=== PATIENT | male | born 1955 | race Caucasian/White ===

== ENCOUNTER → 2024-10-21 | Outpatient (CLI) | payer OTHER, SELFPAY ==
[2024-10-29 06:24] LABS: Albumin 4.1 g/dL (3.6-5.1); SHBG 33 nmol/L (22-77); Testosterone, Bioavailable 67.8 ng/dL (110.0-575.0); Testosterone,Total 279 ng/dL (250-1100)
== END | disposition home or self-care (01) ==
LOC: COPL 14:58
PROVIDERS: PCP Family Medicine; Referring Provider Nurse Practitioner Family; Visit Provider Nurse Practitioner Family
DX: E29.1 Testicular hypofunction (principal)
CPT/HCPCS: 36415; 82040; 84270; 84403

== ENCOUNTER → 2025-01-22 | Outpatient (CLI) | payer OTHER, SELFPAY ==
[2025-01-22 09:32] LABS: Basophils # (Auto) 0.1 Thou/mm3 (0.0-0.2); Basophils % (Auto) 1 % (0-2.5); Eosinophils # (Auto) 0.4 Thou/mm3 (0.0-0.5); Eosinophils % (Auto) 5 % (0-10); Hematocrit 41.8 % (41.0-53.0); Hemoglobin 12.9 g/dL (13.5-16.0); Immature Granulocytes % (Auto) 0 % (0-0); Immature Granulocytes Auto 0.02 Thou/mm3 (0.00-0.00); Lymphocytes # (Auto) 2.2 Thou/mm3 (1.0-4.8); Lymphocytes % (Auto) 30 % (10-50); Mean Corpuscular HGB Conc 30.9 g/dl (31.0-37.0); Mean Corpuscular Hemoglobin 23.3 pg (25.0-35.0); Mean Corpuscular Volume 76 fL (80-100); Monocytes # (Auto) 0.8 Thou/mm3 (0.0-0.8); Monocytes % (Auto) 10 % (0-12); Neutrophils % (Auto) 54 % (37-80); Nucleated Red Blood Cell % 0 /100 WBC (0); Platelet Count 338 Thou/mm3 (140-440); RDW Standard Deviation 46.5 fL (35.1-43.9); Red Blood Count 5.53 Miln/mm3 (4.50-5.90); White Blood Count 7.4 Thou/mm3 (3.8-10.6)
[2025-01-22 09:45] LABS: Glucose Estimated Average 137 mg/dL (80-131); Hemoglobin A1C 6.4 % Hgb (4.8-6.0)
[2025-01-22 10:02] LABS: Prostate Specific Antigen 1.15 ng/mL (0-4.00); T4 (Thyroxine) 6.8 mcg/dL (4.5-10.9)
[2025-01-22 10:04] LABS: Alanine Aminotransferase 20 U/L (10-49); Albumin, Serum 4.1 gm/dL (3.4-4.8); Albumin/Globulin Ratio 1.8 (1.2-2.2); Alkaline Phosphatase 97 U/L (46-116); Anion Gap 8 (7-16); Aspartate Amino Transferase 17 U/L (0-34); BUN/Creatinine Ratio 12 Ratio (12-20); Bilirubin,Total 0.4 mg/dL (0.3-1.2); Blood Urea Nitrogen 12 mg/dL (9-23); Calcium 9.3 mg/dL (8.3-10.6); Calcium (Corrected) 9.3 mg/dL (8.5-10.1); Carbon Dioxide 26.8 mMol/L (20.0-31.0); Cardiac Risk Estimate 3.6 RATIO (4.0-6.7); Chloride 108 mMol/L (98-107); Cholesterol 139 mg/dL (132-200); Globulin 2.3 gm/dL (2.3-3.5); Glucose 129 mg/dL (74-106); HDL Cholesterol 39 mg/dL (40-60); LDL Cholesterol,Calculated 66 mg/dL (0-130); Osmolality,Calculated 286 (275-295); Potassium 4.6 mMol/L (3.4-5.1); Sodium 143 mMol/L (136-145); Total Protein 6.4 gm/dL (5.7-8.2); Triglycerides 171 mg/dL (30-150); eGFR > 60 See Note
[2025-01-27 06:57] LABS: Testosterone, Free,Dialysis 202.7 pg/mL (35.0-155.0); Testosterone, Total, Dialysis 899 ng/dL (250-1100)
== END | disposition home or self-care (01) ==
LOC: COPL 08:22
PROVIDERS: PCP Family Medicine; Referring Provider Nurse Practitioner Family; Visit Provider Nurse Practitioner Family
DX: Z12.5 Encounter for screening for malignant neoplasm of prostate (principal); E29.1 Testicular hypofunction; I10 Essential (primary) hypertension; E11.9 Type 2 diabetes mellitus without complications
CPT/HCPCS: 36415; 80053; 80061; 83036; 84153; 84402; 84403; 84436; 84443; 85025

== ENCOUNTER → 2025-04-04 | Outpatient (CLI) | payer OTHER, SELFPAY ==
[2025-04-04 10:43] LABS: B-Type Natriuretic Peptide 121 pg/mL (0-100)
[2025-04-04 11:30] LABS: D-Dimer < 250 ng/mL (<600)
== END | disposition home or self-care (01) ==
LOC: COPL 09:08
PROVIDERS: PCP Family Medicine; Referring Provider Nurse Practitioner Family; Visit Provider Nurse Practitioner Family
DX: R06.02 Shortness of breath (principal); R07.9 Chest pain, unspecified
CPT/HCPCS: 36415; 83880; 85379

== ENCOUNTER → 2025-04-30 | Outpatient (CLI) | payer OTHER, SELFPAY ==
[2025-04-30 11:28] LABS: B-Type Natriuretic Peptide 203 pg/mL (0-100)
== END | disposition home or self-care (01) ==
LOC: COPL 10:43
PROVIDERS: PCP Family Medicine; Referring Provider Nurse Practitioner Family; Visit Provider Nurse Practitioner Family
DX: R06.02 Shortness of breath (principal); I50.20 Unspecified systolic (congestive) heart failure
CPT/HCPCS: 36415; 83880

== ENCOUNTER 2025-05-26 06:37 | Day surgery (SDC) | payer OTHER, SELFPAY ==
[2025-05-22 17:38] VITALS: BMI 30.6
[2025-05-26] VITALS (11 sets, daily range): BP systolic 110–155; BP diastolic 53–81; PULSE 64–74; RESP 12–20; TEMP 36.2–36.6; O2SAT 92–98
--- NOTE | 2025-05-26 07:00 | EKG_ITS ---
[facility] (Formerly [facility]) Test Date: 2025-05-26 Pat Name: ZAC SHAW Department: Room: - Gender: Male [employer]: : 1955 Requested By: Felicia Tobias Order Number: [id number] Reading MD: Felicia Tobias Measurements Intervals Lopez Rate: 69 P: 66 ID: [id number] QRS: 20 QRSD: 80 T: 30 QT: 376 QTc: 403 Interpretive Statements SINUS RHYTHM MINIMAL VOLTAGE CRITERIA FOR LVH, CONSIDER NORMAL VARIANT Compared to ECG 11/18/2018 16:32:16 No significant changes /[id number]
[2025-05-26 07:27] LABS: Basophils # (Auto) 0.1 Thou/mm3 (0.0-0.2); Basophils % (Auto) 1 % (0-2.5); Eosinophils # (Auto) 0.3 Thou/mm3 (0.0-0.5); Eosinophils % (Auto) 4 % (0-10); Hematocrit 29.2 % (41.0-53.0); Immature Granulocytes Auto 0.01 Thou/mm3 (0.00-0.00); Lymphocytes # (Auto) 2.4 Thou/mm3 (1.0-4.8); Lymphocytes % (Auto) 33 % (10-50); Mean Corpuscular HGB Conc 25.0 g/dl (31.0-37.0); Mean Corpuscular Hemoglobin 16.5 pg (25.0-35.0); Mean Corpuscular Volume 66 fL (80-100); Monocytes # (Auto) 0.6 Thou/mm3 (0.0-0.8); Monocytes % (Auto) 8 % (0-12); Neutrophils # (Auto) 3.9 Thou/mm3 (1.8-7.7); Neutrophils % (Auto) 54 % (37-80); Nucleated Red Blood Cell # 0.00 Thou/mm3 (0.00-0.00); Nucleated Red Blood Cell % 0 /100 WBC (0); Platelet Count 386 Thou/mm3 (140-440); RDW Standard Deviation 46.2 fL (35.1-43.9); Red Blood Count 4.43 Miln/mm3 (4.50-5.90); White Blood Count 7.2 Thou/mm3 (3.8-10.6)
[2025-05-26 07:41] LABS: Anion Gap 8 (7-16); BUN/Creatinine Ratio 14 Ratio (12-20); Blood Urea Nitrogen 15 mg/dL (9-23); Calcium 8.9 mg/dL (8.3-10.6); Carbon Dioxide 28.3 mMol/L (20.0-31.0); Chloride 108 mMol/L (98-107); Creatinine (Component) 1.1 mg/dL (0.6-1.3); Estimated Creatinine Clearance 86.5 mL/min (>60); Glucose 126 mg/dL (74-106); Osmolality,Calculated 289 (275-295); Potassium 4.4 mMol/L (3.4-5.1); Sodium 144 mMol/L (136-145); eGFR > 60 See Note
[2025-05-26 07:43] LABS: Hemoglobin 7.3 g/dL (13.5-16.0)
[2025-05-26 07:56] LABS: INR 1.0 (0.9-1.3); Partial Thromboplastin Time 22.7 Seconds (22.0-36.0); Prothrombin Time 10.9 Seconds (9.0-12.2)
--- NOTE | 2025-05-26 13:33 | ESOP_ITS ---
RE: ZAC SHAW : 1955 DATE OF OPERATION: 05/26/2025 PROCEDURES PERFORMED: 1. Diagnostic left heart cardiac catheterization, selective coronary angiogram, left ventricular angiogram, CPT 00672. 2. Ultrasound-guided right radial artery access. 3. Conscious sedation for 30 minutes. DIAGNOSIS: Angina affect with abnormal stress test. HISTORY AND INDICATIONS: The patient is a 70-year-old male with a history of hypertension and risk factor was created as recurrent shortness of breath, chest tightness, and exertion. Cardiac stress and nuclear scan is abnormal, hence coronary angiogram, cardiac catheterization is recommended. The patient is a candidate for intervention. DESCRIPTION OF PROCEDURE: The patient was brought to the cardiac catheterization laboratory where he was given 2 mg Versed and 50 mcg of fentanyl for sedation. He was given 2 mg of Versed and 50 mcg fentanyl with sedation. Right radial approach was taken. Right radial artery was cannulated by micro-puncture technique and a 6-[place] was introduced. Selective right and left coronary angiogram performed by TIG4 5-[place] diagnostic catheter. Right and left coronary angiogram performed. Left heart catheterization and LV angiogram performed by 5-[place] TIG4 diagnostic catheter. The patient tolerated the procedure well. No complications. Coronary angiogram showed following findings: Right coronary artery is large and dominant. Giving a PDA posterior advice appear normal. Left coronary system. Left main coronary is normal. Left anterior descending artery appears normal. Circumflex artery nondominant appears normal. No significant obstructive coronary artery disease. Left ventricular angiogram showed normal left ventricular wall motion with ejection fraction of 70%. Left ventricular pressure is 110/88, EDP 12. Aortic patent 110/80. No gradient across the aortic valve. Left ventricular angiogram showed normal left ventricular wall motion with ejection fraction is 65%. SUMMARY OF FINDINGS: 1. Normal left ventricular function. 2. Normal hemodynamics. 3. Normal nonobstructive epicardial coronary artery disease. RECOMMENDATIONS: The patient is reassured about the absence of significant obstructive coronary artery disease. Progress is excellent. Recommended continued medical management. Investigate for other causes of shortness of breath and noncardiac chest pain. DT: 12:42:10 TT: 13:30:00 Ref: [id number] - TID: [id number]
== END 2025-05-26 11:55 | disposition home or self-care (01) ==
PROVIDERS: PCP Family Medicine; Referring Provider Internal Medicine Cardiovascular Disease; Visit Provider Internal Medicine Cardiovascular Disease
PROC: (CPT 93458; principal; 2025-05-26 07:30)
DX: I25.119 Atherosclerotic heart disease of native coronary artery with unspecified angina pectoris (principal); I10 Essential (primary) hypertension; Z01.810 Encounter for preprocedural cardiovascular examination
CPT/HCPCS: 93458; 36415; 80048; 85025; 85610; 85730; 93005; 99152; A4649; C1769; C1887; C1894; J0171; J0461; J1643; J2250; J2310; J2371; J3010; J3490; Q9967; J2305

== ENCOUNTER → 2025-05-27 | Outpatient (CLI) | payer OTHER, SELFPAY ==
[2025-05-27 16:22] LABS: Misc Send Out* See Sep Rpt
[2025-05-27 17:34] LABS: Immature Reticulocyte Fraction 17.6 % (2.3-13.4); Reticulocyte % (Auto) 1.6 % (0.5-1.5); Reticulocyte Absolute Auto 68.6 Biln/L (25.0-75.0); Reticulocyte Hgb Content 14.9 pg (28.0-35.0)
[2025-05-27 17:46] LABS: Alanine Aminotransferase 20 U/L (10-49); Albumin, Serum 4.1 gm/dL (3.4-4.8); Alkaline Phosphatase 113 U/L (46-116); Aspartate Amino Transferase 16 U/L (0-34); Bilirubin,Direct 0.1 mg/dL (0.0-0.3); Bilirubin,Total 0.3 mg/dL (0.3-1.2); Total Protein 6.3 gm/dL (5.7-8.2)
[2025-05-27 17:48] LABS: Ferritin 2 ng/mL (10.5-307.3); Iron 6 mcg/dL (65-175); Percent Iron Saturation 1 % (20-55); Total Iron Binding Capacity 421 mcg/dL (250-425); Unsaturated Iron Binding 415 (225-295)
[2025-05-27 17:56] LABS: Folate 8.96 ng/mL (>5.38); Vitamin B12 > 2000 pg/mL (211-911)
[2025-06-02 09:33] LABS: Fecal Globin Result NOT DETECTED (NOT DETECTED)
[2025-06-02 09:38] LABS: Homocysteine* 10.8 umol/L (< OR = 15.2); Methylmalonic Acid, GC/MS/MS* 165 nmol/L (69-390)
== END | disposition home or self-care (01) ==
LOC: COPL 16:06
PROVIDERS: PCP Nurse Practitioner Family; Referring Provider Nurse Practitioner Family; Visit Provider Nurse Practitioner Family
DX: D64.9 Anemia, unspecified (principal); R42 Dizziness and giddiness
CPT/HCPCS: 36415; 80076; 82274; 82607; 82728; 82746; 83090; 83540; 83550; 83921; 84466; 85046; G0328

== ENCOUNTER → 2025-06-02 | Outpatient (CLI) | payer OTHER, SELFPAY ==
[2025-06-02 11:18] LABS: Basophils # (Auto) 0.1 Thou/mm3 (0.0-0.2); Basophils % (Auto) 1 % (0-2.5); Eosinophils # (Auto) 0.2 Thou/mm3 (0.0-0.5); Eosinophils % (Auto) 3 % (0-10); Hematocrit 27.3 % (41.0-53.0); Immature Granulocytes Auto 0.04 Thou/mm3 (0.00-0.00); Immature Reticulocyte Fraction 42.9 % (2.3-13.4); Lymphocytes # (Auto) 1.4 Thou/mm3 (1.0-4.8); Lymphocytes % (Auto) 21 % (10-50); Mean Corpuscular HGB Conc 25.6 g/dl (31.0-37.0); Mean Corpuscular Hemoglobin 16.9 pg (25.0-35.0); Mean Corpuscular Volume 66 fL (80-100); Monocytes # (Auto) 0.5 Thou/mm3 (0.0-0.8); Monocytes % (Auto) 7 % (0-12); Neutrophils # (Auto) 4.4 Thou/mm3 (1.8-7.7); Neutrophils % (Auto) 67 % (37-80); Nucleated Red Blood Cell # 0.00 Thou/mm3 (0.00-0.00); Nucleated Red Blood Cell % 0 /100 WBC (0); Platelet Count 404 Thou/mm3 (140-440); RDW Standard Deviation 47.0 fL (35.1-43.9); Red Blood Count 4.13 Miln/mm3 (4.50-5.90); Reticulocyte % (Auto) 3.8 % (0.5-1.5); Reticulocyte Absolute Auto 155.3 Biln/L (25.0-75.0); Reticulocyte Hgb Content 19.6 pg (28.0-35.0); White Blood Count 6.5 Thou/mm3 (3.8-10.6)
[2025-06-02 11:27] LABS: Ferritin 6 ng/mL (10.5-307.3); Iron 185 mcg/dL (65-175); Percent Iron Saturation 45 % (20-55); Total Iron Binding Capacity 406 mcg/dL (250-425); Unsaturated Iron Binding 221 (225-295)
[2025-06-02 11:29] LABS: Hemoglobin 7.0 g/dL (13.5-16.0)
[2025-06-02 17:44] LABS: Path Review Blood Smear Sent to Pathologist
== END | disposition home or self-care (01) ==
LOC: COPL 09:36
PROVIDERS: PCP Nurse Practitioner Family; Referring Provider Nurse Practitioner Family; Visit Provider Nurse Practitioner Family
DX: D64.9 Anemia, unspecified (principal)
CPT/HCPCS: 36415; 82728; 83540; 83550; 85025; 85046

== ENCOUNTER → 2025-06-16 | Outpatient (CLI) | payer OTHER, SELFPAY ==
[2025-06-16 14:07] LABS: Misc Send Out* See Sep Rpt
[2025-06-16 14:31] LABS: Basophils # (Auto) 0.1 Thou/mm3 (0.0-0.2); Basophils % (Auto) 1 % (0-2.5); Eosinophils # (Auto) 0.3 Thou/mm3 (0.0-0.5); Eosinophils % (Auto) 4 % (0-10); Hematocrit 38.5 % (41.0-53.0); Hemoglobin 10.3 g/dL (13.5-16.0); Immature Granulocytes Auto 0.02 Thou/mm3 (0.00-0.00); Immature Reticulocyte Fraction 32.3 % (2.3-13.4); Lymphocytes # (Auto) 1.5 Thou/mm3 (1.0-4.8); Lymphocytes % (Auto) 21 % (10-50); Mean Corpuscular HGB Conc 26.8 g/dl (31.0-37.0); Mean Corpuscular Hemoglobin 20.6 pg (25.0-35.0); Mean Corpuscular Volume 77 fL (80-100); Monocytes # (Auto) 0.6 Thou/mm3 (0.0-0.8); Monocytes % (Auto) 9 % (0-12); Neutrophils # (Auto) 4.7 Thou/mm3 (1.8-7.7); Neutrophils % (Auto) 65 % (37-80); Nucleated Red Blood Cell # 0.00 Thou/mm3 (0.00-0.00); Nucleated Red Blood Cell % 0 /100 WBC (0); Platelet Count 352 Thou/mm3 (140-440); Red Blood Count 4.99 Miln/mm3 (4.50-5.90); Reticulocyte % (Auto) 1.3 % (0.5-1.5); Reticulocyte Absolute Auto 66.4 Biln/L (25.0-75.0); Reticulocyte Hgb Content 24.3 pg (28.0-35.0); White Blood Count 7.2 Thou/mm3 (3.8-10.6)
[2025-06-16 14:40] LABS: Alanine Aminotransferase 24 U/L (10-49); Albumin, Serum 4.2 gm/dL (3.4-4.8); Alkaline Phosphatase 107 U/L (46-116); Aspartate Amino Transferase 23 U/L (0-34); Bilirubin,Direct 0.2 mg/dL (0.0-0.3); Bilirubin,Total 0.4 mg/dL (0.3-1.2); Total Protein 6.6 gm/dL (5.7-8.2)
[2025-06-16 15:04] LABS: Ferritin 16 ng/mL (10.5-307.3); Iron 301 mcg/dL (65-175); Percent Iron Saturation 75 % (20-55); Total Iron Binding Capacity 400 mcg/dL (250-425); Unsaturated Iron Binding 99 (225-295)
[2025-06-16 15:12] LABS: Path Review Blood Smear Sent to Pathologist
== END | disposition home or self-care (01) ==
LOC: COPL 13:41
PROVIDERS: PCP Nurse Practitioner Family; Referring Provider Nurse Practitioner Family; Visit Provider Nurse Practitioner Family
DX: D64.9 Anemia, unspecified (principal); R42 Dizziness and giddiness
CPT/HCPCS: 36415; 80076; 82728; 83540; 83550; 85025; 85046

== ENCOUNTER → 2025-07-09 | Outpatient (CLI) | payer OTHER, SELFPAY ==
[2025-07-09 13:53] LABS: Misc Send Out* See Sep Rpt
[2025-07-09 14:21] LABS: Basophils # (Auto) 0.1 Thou/mm3 (0.0-0.2); Basophils % (Auto) 1 % (0-2.5); Eosinophils # (Auto) 0.3 Thou/mm3 (0.0-0.5); Eosinophils % (Auto) 4 % (0-10); Hematocrit 45.7 % (41.0-53.0); Hemoglobin 12.9 g/dL (13.5-16.0); Immature Granulocytes Auto 0.03 Thou/mm3 (0.00-0.00); Immature Reticulocyte Fraction 14.6 % (2.3-13.4); Lymphocytes # (Auto) 1.7 Thou/mm3 (1.0-4.8); Lymphocytes % (Auto) 28 % (10-50); Mean Corpuscular HGB Conc 28.2 g/dl (31.0-37.0); Mean Corpuscular Hemoglobin 21.8 pg (25.0-35.0); Mean Corpuscular Volume 77 fL (80-100); Monocytes # (Auto) 0.5 Thou/mm3 (0.0-0.8); Monocytes % (Auto) 8 % (0-12); Neutrophils # (Auto) 3.6 Thou/mm3 (1.8-7.7); Neutrophils % (Auto) 59 % (37-80); Nucleated Red Blood Cell # 0.00 Thou/mm3 (0.00-0.00); Nucleated Red Blood Cell % 0 /100 WBC (0); Platelet Count 254 Thou/mm3 (140-440); RDW Standard Deviation 70.2 fL (35.1-43.9); Red Blood Count 5.92 Miln/mm3 (4.50-5.90); Reticulocyte % (Auto) 0.9 % (0.5-1.5); Reticulocyte Absolute Auto 51.5 Biln/L (25.0-75.0); Reticulocyte Hgb Content 26.4 pg (28.0-35.0); White Blood Count 6.2 Thou/mm3 (3.8-10.6)
[2025-07-09 14:27] LABS: Alanine Aminotransferase 60 U/L (10-49); Albumin, Serum 4.2 gm/dL (3.4-4.8); Alkaline Phosphatase 169 U/L (46-116); Aspartate Amino Transferase 37 U/L (0-34); Bilirubin,Direct 0.1 mg/dL (0.0-0.3); Bilirubin,Total 0.4 mg/dL (0.3-1.2); Total Protein 6.7 gm/dL (5.7-8.2)
[2025-07-09 14:39] LABS: Ferritin 11 ng/mL (10.5-307.3); Iron 27 mcg/dL (65-175); Percent Iron Saturation 6 % (20-55); Total Iron Binding Capacity 386 mcg/dL (250-425); Unsaturated Iron Binding 359 (225-295)
== END | disposition home or self-care (01) ==
PROVIDERS: Specialist; PCP Family Medicine; Referring Provider Nurse Practitioner Family; Visit Provider Nurse Practitioner Family
PROC: 0DBE8ZX Excision of Large Intestine, Via Natural or Artificial Opening Endoscopic, Diagnostic (ICD-10-PCS; CPT 45380; principal; 2025-08-04 10:15)
PROC: (CPT 43239; 2025-08-04 10:15)
DX: D64.9 Anemia, unspecified (principal); R42 Dizziness and giddiness
CPT/HCPCS: 36415; 80076; 82728; 83540; 83550; 85025; 85046

== ENCOUNTER 2025-08-04 09:05 | Day surgery (SDC) | payer OTHER, SELFPAY ==
[2025-08-01 14:49] VITALS: BMI 43.7
[2025-08-04] VITALS (9 sets, daily range): BP systolic 160–180; BP diastolic 86–103; PULSE 60–72; RESP 12–17; TEMP 36.2–36.7; O2SAT 92–100; BMI 30.1
[2025-08-04] MEDS: BENZOCAINE 20% (Hurricaine) SPRAY 1 DOSE TOP (11:20)
[2025-08-04] MEDS: SODIUM CHLORIDE 0.9% 500 ML 500 ML 20 ML IV (11:21)
[2025-08-04] MEDS: fentaNYL CIT INJ 50 mCg/ML AMP 2ML (ASD USE ONLY) IVP (11:23)
[2025-08-04] MEDS: MIDAZOLAM INJ 1 MG/ML VIAL 2 ML (ASD USE ONLY) 2 MG IVP (11:25)
--- NOTE | 2025-08-04 12:10 | SUR.PHASEII ---
PT WAITING FOR HIS RIDE.
== END 2025-08-04 12:23 | disposition home or self-care (01) ==
PROVIDERS: PCP Nurse Practitioner Family; Referring Provider Specialist; Visit Provider Specialist
PROC: (CPT 43239; principal; 2025-08-04 10:15)
DX: K20.90 Esophagitis, unspecified without bleeding (principal); R13.10 Dysphagia, unspecified; E78.5 Hyperlipidemia, unspecified; I10 Essential (primary) hypertension; K31.84 Gastroparesis; D50.0 Iron deficiency anemia secondary to blood loss (chronic); Z79.899 Other long term (current) drug therapy; K29.50 Unspecified chronic gastritis without bleeding
CPT/HCPCS: 43239; A4649; J1200; J2250; J3010; J7999; A9270

== ENCOUNTER → 2025-10-14 | Outpatient (CLI) | payer OTHER, SELFPAY ==
[2025-10-14 09:50] LABS: Basophils # (Auto) 0.1 Thou/mm3 (0.0-0.2); Basophils % (Auto) 1 % (0-2.5); Eosinophils # (Auto) 0.3 Thou/mm3 (0.0-0.5); Eosinophils % (Auto) 6 % (0-10); Hematocrit 47.5 % (41.0-53.0); Hemoglobin 15.5 g/dL (13.5-16.0); Immature Granulocytes Auto 0.02 Thou/mm3 (0.00-0.00); Lymphocytes # (Auto) 2.0 Thou/mm3 (1.0-4.8); Lymphocytes % (Auto) 37 % (10-50); Mean Corpuscular HGB Conc 32.6 g/dl (31.0-37.0); Mean Corpuscular Hemoglobin 27.3 pg (25.0-35.0); Mean Corpuscular Volume 84 fL (80-100); Monocytes # (Auto) 0.4 Thou/mm3 (0.0-0.8); Monocytes % (Auto) 8 % (0-12); Neutrophils # (Auto) 2.6 Thou/mm3 (1.8-7.7); Neutrophils % (Auto) 48 % (37-80); Nucleated Red Blood Cell # 0.00 Thou/mm3 (0.00-0.00); Nucleated Red Blood Cell % 0 /100 WBC (0); Platelet Count 186 Thou/mm3 (140-440); RDW Standard Deviation 59.8 fL (35.1-43.9); Red Blood Count 5.68 Miln/mm3 (4.50-5.90); White Blood Count 5.4 Thou/mm3 (3.8-10.6)
[2025-10-14 10:03] LABS: Alanine Aminotransferase 79 U/L (10-49); Albumin, Serum 4.2 gm/dL (3.4-4.8); Albumin/Globulin Ratio 1.7 (1.2-2.2); Alkaline Phosphatase 187 U/L (46-116); Aspartate Amino Transferase 49 U/L (0-34); BUN/Creatinine Ratio 7 Ratio (12-20); Bilirubin,Total 0.3 mg/dL (0.3-1.2); Blood Urea Nitrogen 8 mg/dL (9-23); Calcium 9.6 mg/dL (8.3-10.6); Calcium (Corrected) 9.6 mg/dL (8.5-10.1); Cardiac Risk Estimate 4.6 RATIO (4.0-6.7); Chloride 103 mMol/L (98-107); Cholesterol 202 mg/dL (132-200); Creatinine (Component) 1.2 mg/dL (0.6-1.3); Globulin 2.5 gm/dL (2.3-3.5); Glucose 180 mg/dL (74-106); HDL Cholesterol 44 mg/dL (40-60); LDL Cholesterol,Calculated 94 mg/dL (0-130); Osmolality,Calculated 286 (275-295); Potassium 4.1 mMol/L (3.4-5.1); Sodium 142 mMol/L (136-145); Thyroid Stimulating Hormone 1.36 uIU/mL (0.55-4.78); Total Protein 6.7 gm/dL (5.7-8.2); Triglycerides 322 mg/dL (30-150); eGFR > 60 See Note
[2025-10-14 10:16] LABS: Anion Gap 10 (7-16); Carbon Dioxide 29.0 mMol/L (20.0-31.0)
[2025-10-14 10:44] LABS: Glucose Estimated Average 137 mg/dL (80-131); Hemoglobin A1C 6.4 % Hgb (4.8-6.0)
[2025-10-14 11:20] LABS: Amphetamine/Methamp Scrn,U Negative (Negative); Barbiturate Screen,Urine Negative (Negative); Benzodiazepines Screen,Urine Negative (Negative); Benzoylecgonine Screen, Ur Negative (Negative); Fentanyl Screen,Urine Negative (Negative); Opiate Screen,Urine Positive (Negative); THC Screen,Urine Negative (Negative)
== END | disposition home or self-care (01) ==
LOC: COPL 08:46
PROVIDERS: PCP Family Medicine; Referring Provider Internal Medicine; Visit Provider Internal Medicine
DX: G47.00 Insomnia, unspecified (principal); M54.50 Low back pain, unspecified; R74.01 Elevation of levels of liver transaminase levels; Z79.891 Long term (current) use of opiate analgesic
CPT/HCPCS: 36415; 80053; 80061; 80307; 83036; 84443; 85025